=== PATIENT | female | born 1975 | race Two or more races ===

== ENCOUNTER 2022-04-25 09:45 | Day surgery (SDC) | payer OTHER ==
[2022-04-25] MEDS ORDERED: FERRIC CARBOXYMALTOSE 750 MG in SODIUM CHLORIDE 250 ML IVPB ONE (10:00)
[2022-04-25 15:48] VITALS: BP 125/71; PULSE 66; RESP 18; TEMP 98.1
== END 2022-04-25 10:50 | disposition home or self-care (01) ==
LOC: JINFUSION 09:45 → J7W 09:49 → JINFUSION 10:50
PROVIDERS: ATTEND Internal Medicine Hematology & Oncology
PROC: 3E033GC Introduction of Other Therapeutic Substance into Peripheral Vein, Percutaneous Approach (ICD-10-PCS; principal; 2022-04-25)
DX: D50.9 Iron deficiency anemia, unspecified (principal)
CPT/HCPCS: 96365; J1439

== ENCOUNTER 2022-05-02 09:40 | Day surgery (SDC) | payer OTHER ==
[2022-05-02] MEDS ORDERED: FERRIC CARBOXYMALTOSE 750 MG in SODIUM CHLORIDE 250 ML IVPB ONE (10:00)
[2022-05-02 17:00] VITALS: BP 110/65; PULSE 70; RESP 16; TEMP 98.2
== END 2022-05-02 12:10 | disposition home or self-care (01) ==
LOC: JINFUSION 09:40 → J7W 09:40 → JINFUSION 12:10
PROVIDERS: ATTEND Internal Medicine Hematology & Oncology
PROC: 3E033GC Introduction of Other Therapeutic Substance into Peripheral Vein, Percutaneous Approach (ICD-10-PCS; principal; 2022-05-02)
DX: D50.0 Iron deficiency anemia secondary to blood loss (chronic) (principal)
CPT/HCPCS: 96365; J1439

== ENCOUNTER 2022-09-12 07:53 | Day surgery (SDC) | payer OTHER ==
[2022-09-12] MEDS ORDERED: FERRIC CARBOXYMALTOSE 750 MG in SODIUM CHLORIDE 250 ML IVPB ONE (08:30)
[2022-09-12 15:30] VITALS: BP 106/70; PULSE 81; RESP 20; TEMP 98.5
== END 2022-09-12 10:05 | disposition home or self-care (01) ==
LOC: JONCNONCHE 07:53
PROVIDERS: ATTEND Internal Medicine Hematology & Oncology
PROC: 3E033GC Introduction of Other Therapeutic Substance into Peripheral Vein, Percutaneous Approach (ICD-10-PCS; principal; 2022-09-12)
DX: D50.9 Iron deficiency anemia, unspecified (principal)
CPT/HCPCS: 96365; J1439

== ENCOUNTER 2022-09-19 08:12 | Day surgery (SDC) | payer OTHER ==
[2022-09-19] MEDS ORDERED: FERRIC CARBOXYMALTOSE 750 MG in SODIUM CHLORIDE 250 ML IVPB ONE (09:00)
[2022-09-19 10:36] VITALS: BP 115/70; PULSE 74; RESP 20; TEMP 98.3
== END 2022-09-19 10:20 | disposition home or self-care (01) ==
LOC: JONCNONCHE 08:12 → J7W 08:13 → JONCNONCHE 10:20
PROVIDERS: ATTEND Internal Medicine Hematology & Oncology
PROC: 3E033GC Introduction of Other Therapeutic Substance into Peripheral Vein, Percutaneous Approach (ICD-10-PCS; principal; 2022-09-19)
DX: D50.9 Iron deficiency anemia, unspecified (principal)
CPT/HCPCS: 96365; J1439

== ENCOUNTER 2023-03-22 12:27 | Day surgery (SDC) | payer OTHER ==
[~2023-03-22 12:27] MED LIST: FERRIC CARBOXYMALTOSE 750 MG in SODIUM CHLORIDE 250 ML IVPB ONE
[2023-03-22 12:42] VITALS: RESP 18; TEMP 97.9
[2023-03-22 13:49] VITALS: BP 98/60; PULSE 68
== END 2023-03-22 13:30 | disposition home or self-care (01) ==
LOC: JONCNONCHE 12:27 → J7W 12:28 → JONCNONCHE 13:30
PROVIDERS: ATTEND Internal Medicine Hematology & Oncology
PROC: 3E033GC Introduction of Other Therapeutic Substance into Peripheral Vein, Percutaneous Approach (ICD-10-PCS; principal; 2023-03-22)
DX: D50.9 Iron deficiency anemia, unspecified (principal)
CPT/HCPCS: 96365; J1439

== ENCOUNTER 2023-03-29 15:23 | Day surgery (SDC) | payer OTHER ==
[2023-03-29 15:53] VITALS: RESP 16; TEMP 97.9
[2023-03-29 17:33] VITALS: BP 120/64; PULSE 80
== END 2023-03-29 16:20 | disposition home or self-care (01) ==
LOC: JONCNONCHE 15:23 → J7W 15:23 → JONCNONCHE 16:20
PROVIDERS: ATTEND Internal Medicine Hematology & Oncology
PROC: 3E033GC Introduction of Other Therapeutic Substance into Peripheral Vein, Percutaneous Approach (ICD-10-PCS; principal; 2023-03-29)
DX: D50.9 Iron deficiency anemia, unspecified (principal)
CPT/HCPCS: 96365; J1439